=== PATIENT | female | born 1990 | race Caucasian/White ===

== ENCOUNTER 2016-10-25 09:04 | Inpatient (IN) | payer MEDICARE, OTHER ==
[2016-10-25 10:03] LABS: Add Diff/Slide Review? Slide Review Added; Comments Flag Yes; Hematocrit 38 % (35-47); Hemoglobin 12.5 g/dl (12.0-16.0); Mean Corpuscular HGB Conc 33 g/dl (31-36); Mean Corpuscular Hemoglobin 28 pg (27-31); Mean Corpuscular Volume 86 fL (80-97); Mean Platelet Volume 10 um3 (7.4-10.4); Red Blood Count 4.45 10^6/ul (4.0-5.4); Red Cell Distribution Width 14 % (10.5-15); White Blood Count 32.4 10^3/ul (3.5-10.8)
[2016-10-25 10:05] LABS: Manual Entry Verification HAN0055; UR Preg Internal Control QC Line Present
[2016-10-25 10:07] LABS: Urine Bacteria 2+ (Absent); Urine Bilirubin Negative (Negative); Urine Glucose Negative (Negative); Urine Nitrite Negative (Negative)
[2016-10-25 10:19] LABS: Albumin 4.1 g/dL (3.2-5.2); BUN/Creatinine Ratio 15.9 (8-20); EGFR African American 62.6 (>60); EGFR Non-African American 48.6 (>60); Globulin 3.8 g/dL (2-4); Potassium 3.6 mmol/L (3.5-5.0); Total Bilirubin 0.7 mg/dL (0.2-1.0); Total Protein 7.9 g/dL (6.4-8.9)
[2016-10-25 10:46] LABS: Immature Granulocytes 13 % (0-9); Neutrophil % 80 % (38-83); RBC Morphology Normal (Normal)
[2016-10-25] MEDS ORDERED: Ciprofloxacin 400MG IVPREMIX(* 400 MG/200 ML BAG IVPB ONE (11:19)
[2016-10-25] MEDS ORDERED: Ketorolac INJ* 30 MG/ML 1 ML VIAL IV PUSH ONE (11:19)
[2016-10-25] MEDS ORDERED: Ondansetron INJ* 2 MG/ML VIAL IV ONE (11:20)
[2016-10-25] MEDS: NS 0.9% 1000 ML* 2,000 ML IV ONE (11:43)
--- NOTE | 2016-10-25 11:58 | RAD ---
HISTORY: Fever, left flank pain COMPARISONS: October 28, 2013 TECHNIQUE: Multiple transverse and longitudinal ultrasound images were obtained of the left kidney using grayscale and color Doppler imaging. FINDINGS: RIGHT KIDNEY: No images are submitted of the right kidney LEFT KIDNEY: The left kidney is normal in shape, size, contour, and echogenicity. There is no hydronephrosis or nephrolithiasis. The left kidney measures 9.8 x 5.3 x 5.1 cm. BLADDER: No images are submitted of the bladder. AORTA AND IVC: No images are submitted of the vasculature. RETROPERITONEUM: Unremarkable. OTHER: None. IMPRESSION: NO LEFT HYDRONEPHROSIS OR NEPHROLITHIASIS
[2016-10-25] MEDS: Heparin VIAL(*) 5000 UNITS/ML VIAL (FIVE THOUSAND) SUBCUT SCH ×2 (14:03→22:33)
[2016-10-25] MEDS: Acetaminophen TAB* 325 MG PO PRN ×3 (14:03→22:33)
--- NOTE | 2016-10-25 14:16 | ED ---
Back Pain - History of Current Complaint Chief Complaint: EDNauseaVomitDiarrh Stated Complaint: POSSIBLE KIDDNEY STONE FROM [facility] Time Seen by Provider: 10/25/16 09:19 Hx Last Menstrual Period: 10/14/16 Pain Intensity: 0 Pain Scale Used: 0-10 Numeric - Allergies/Home Medications Allergies/Adverse Reactions: Allergies Allergy/AdvReac Type Severity Reaction Status Date / Time Latex Allergy Unknown Itching Verified 10/25/16 12:53 PMH/Surg Hx/FS Hx/Imm Hx Endocrine/Hematology History: Denies: Hx Anticoagulant Therapy, Hx Diabetes, Hx Thyroid Disease Cardiovascular History: Denies: Hx Congestive Heart Failure, Hx Deep Vein Thrombosis, Hx Hypertension , Hx Myocardial Infarction, Hx Pacemaker/ICD Respiratory History: Denies: Hx Asthma, Hx Chronic Obstructive Pulmonary Disease (COPD), Hx Lung Cancer, Hx Pneumonia, Hx Pulmonary Embolism GI History: Denies: Hx Gall Bladder Disease, Hx Gastrointestinal Bleed, Hx Ulcer, Hx Urosepsis History: Denies: Hx Kidney Stones, Hx Renal Disease Sensory History: Denies: Hx Hearing Aid Neurological History: Reports: Other Neuro Impairments/Disorders - CEREBAL PALSY Denies: Hx Dementia, Hx Migraine, Hx Seizures, Hx Transient Ischemic Attacks (TIA) Psychiatric History: Reports: Hx Depression Denies: Hx Anxiety, Hx Panic Disorder, Hx Schizophrenia, Hx Bipolar Disorder - Surgical History Surgery Procedure, Year, and Place: CONTROL IMPLANT. Infectious Disease History: No Infectious Disease History: Denies: Traveled Outside the [place] in Last 30 Days - Family History Known Family History: Negative: Cardiac Disease, Hypertension - Social History Alcohol Use: Occasionally Substance Use Type: Reports: None Smoking Status (MU): Never Smoked Tobacco Physical Exam Vital Signs On Initial Exam: Initial Vitals Temp Pulse Resp BP Pulse Ox 102.6 F 121 18 87/50 99 10/25/16 09:04 10/25/16 09:04 10/25/16 09:04 10/25/16 09:04 10/25/16 09:04 - [place] Coma Scale Coma Scale Total: 15 Diagnostics - Vital Signs Vital Signs Temp Pulse Resp BP Pulse Ox 10/25/16 12:00 114 96 10/25/16 11:00 115 111/63 98 10/25/16 10:48 94/55 10/25/16 10:47 114 105/51 99 10/25/16 10:45 116 106/46 97 10/25/16 10:32 113 89/61 100 10/25/16 10:00 105/39 10/25/16 09:57 112 98 10/25/16 09:56 102.6 F 121 18 87/50 98 10/25/16 09:55 107/46 10/25/16 09:04 102.6 F 121 18 87/50 99 - Laboratory Lab Results: Lab Results 10/25/16 10/25/16 10/25/16 Range/Units 09:38 09:38 09:38 WBC 32.4 H (3.5-10.8) 10^3/ul RBC 4.45 (4.0-5.4) 10^6/ul Hgb 12.5 (12.0-16.0) g/dl Hct 38 (35-47) % MCV 86 (80-97) fL MCH 28 (27-31) pg MCHC 33 (31-36) g/dl RDW 14 (10.5-15) % Plt Count 260 (150-450) 10^3/ul MPV 10 (7.4-10.4) um3 Immature Gran % (Auto) 13 H (0-9) % Neut % (Auto) 90.8 H (38-83) % Lymph % (Auto) 1.4 L (25-47) % Reynolds % (Auto) 7.5 (1-9) % Eos % (Auto) 0 (0-6) % Baso % (Auto) 0.3 (0-2) % Absolute Neuts (auto) 29.4 H (1.5-7.7) 10^3/ul Absolute Lymphs (auto) 0.5 L (1.0-4.8) 10^3/ul Absolute Monos (auto) 2.4 H (0-0.8) 10^3/ul Absolute Eos (auto) 0 (0-0.6) 10^3/ul Absolute Basos (auto) 0.1 (0-0.2) 10^3/ul Absolute Nucleated RBC 0.04 10^3/ul Neutrophils % 80 (38-83) % Band Neutrophils % 13 H (0-8) % Lymphocytes % 2 L (25-47) % Monocytes % 5 (0-13) % Nucleated RBC % 0.1 Normal RBC Morphology Normal (Normal) Sodium 137 (133-145) mmol/L Potassium 3.6 (3.5-5.0) mmol/L Chloride 103 (101-111) mmol/L Carbon Dioxide 24 (22-32) mmol/L Anion Gap 10 (2-11) mmol/L BUN 21 (6-24) mg/dL Creatinine 1.32 H (0.51-0.95) mg/dL Est GFR ( Amer) 62.6 (>60) Est GFR (Non-Af Amer) 48.6 (>60) BUN/Creatinine Ratio 15.9 (8-20) Glucose 116 H (70-100) mg/dL Lactic Acid (0.5-2.0) mmol/L Calcium 9.0 (8.6-10.3) mg/dL Total Bilirubin 0.70 (0.2-1.0) mg/dL AST 14 (13-39) U/L ALT 15 (7-52) U/L Alkaline Phosphatase 72 (34-104) U/L Total Protein 7.9 (6.4-8.9) g/dL Albumin 4.1 (3.2-5.2) g/dL Globulin 3.8 (2-4) g/dL Albumin/Globulin Ratio 1.1 (1-3) Urine Color Yellow Urine Appearance Cloudy Urine pH 5.0 (5-9) Ur Specific [place] 1.021 (1.010-1.030) Urine Protein 1+(30 mg/dl) H (Negative) Urine Ketones Trace H (Negative) Urine Blood 2+ H (Negative) Urine Nitrate Negative (Negative) Urine Bilirubin Negative (Negative) Urine Urobilinogen Negative (Negative) Ur Leukocyte Esterase 2+ H (Negative) Urine WBC (Auto) 3+(>20/hpf) H (Absent) Urine RBC (Auto) 2+(6-10/hpf) H (Absent) Ur Squamous Epith Cells Present H (Absent) Urine Bacteria 2+ H (Absent) Urine Glucose Negative (Negative) Urine Test (Negative) Influenza A (Rapid) (Negative) Influenza B (Rapid) (Negative) 10/25/16 10/25/16 10/25/16 Range/Units 09:38 09:38 11:25 WBC (3.5-10.8) 10^3/ul RBC (4.0-5.4) 10^6/ul Hgb (12.0-16.0) g/dl Hct (35-47) % MCV (80-97) fL MCH (27-31) pg MCHC (31-36) g/dl RDW (10.5-15) % Plt Count (150-450) 10^3/ul MPV (7.4-10.4) um3 Immature Gran % (Auto) (0-9) % Neut % (Auto) (38-83) % Lymph % (Auto) (25-47) % Reynolds % (Auto) (1-9) % Eos % (Auto) (0-6) % Baso % (Auto) (0-2) % Absolute Neuts (auto) (1.5-7.7) 10^3/ul Absolute Lymphs (auto) (1.0-4.8) 10^3/ul Absolute Monos (auto) (0-0.8) 10^3/ul Absolute Eos (auto) (0-0.6) 10^3/ul Absolute Basos (auto) (0-0.2) 10^3/ul Absolute Nucleated RBC 10^3/ul Neutrophils % (38-83) % Band Neutrophils % (0-8) % Lymphocytes % (25-47) % Monocytes % (0-13) % Nucleated RBC % Normal RBC Morphology (Normal) Sodium (133-145) mmol/L Potassium (3.5-5.0) mmol/L Chloride (101-111) mmol/L Carbon Dioxide (22-32) mmol/L Anion Gap (2-11) mmol/L BUN (6-24) mg/dL Creatinine (0.51-0.95) mg/dL Est GFR ( Amer) (>60) Est GFR (Non-Af Amer) (>60) BUN/Creatinine Ratio (8-20) Glucose (70-100) mg/dL Lactic Acid 1.7 (0.5-2.0) mmol/L Calcium (8.6-10.3) mg/dL Total Bilirubin (0.2-1.0) mg/dL AST (13-39) U/L ALT (7-52) U/L Alkaline Phosphatase (34-104) U/L Total Protein (6.4-8.9) g/dL Albumin (3.2-5.2) g/dL Globulin (2-4) g/dL Albumin/Globulin Ratio (1-3) Urine Color Urine Appearance Urine pH (5-9) Ur Specific [place] (1.010-1.030) Urine Protein (Negative) Urine Ketones (Negative) Urine Blood (Negative) Urine Nitrate (Negative) Urine Bilirubin (Negative) Urine Urobilinogen (Negative) Ur Leukocyte Esterase (Negative) Urine WBC (Auto) (Absent) Urine RBC (Auto) (Absent) Ur Squamous Epith Cells (Absent) Urine Bacteria (Absent) Urine Glucose (Negative) Urine Test Negative (Negative) Influenza A (Rapid) Negative (Negative) Influenza B (Rapid) Negative (Negative) Result Diagrams: 10/25/16 09:38 10/25/16 09:38 Lab Statement: Any lab studies that have been ordered have been reviewed, and results considered in the medical decision making process. - Ultrasound No standard instances Ultrasound Interpretation: No Acute Changes - NO LEFT HYDRONEPHROSIS OR NEPHROLITHIASIS Ultrasound Interpretation Completed By: Radiologist
[2016-10-25] MEDS ORDERED: Morphine INJ* 2 MG/ML 1 ML SYRINGE IV PRN (19:59)
[2016-10-25] MEDS ORDERED: oxyCODONE/Acetamin 5/325 MG* TAB PO PRN (19:59)
[2016-10-25] MEDS: Ondansetron INJ* 2 MG/ML VIAL IV PRN (20:05)
--- NOTE | 2016-10-25 20:09 | HP ---
HISTORY AND PHYSICAL: DATE OF ADMISSION: 10/25/16 PRIMARY CARE PROVIDER: Dr. Yessi Alexandra. ATTENDING PHYSICIAN: Dr. Marvin Thomas *(dictated by Ariela Rosenthal NP). CHIEF COMPLAINT: Left flank pain with fever, body aches, and nausea. HISTORY OF PRESENT ILLNESS: Ms. Rivas is a 26-year-old female with past medical history significant for cerebral palsy and depression, who presents to the emergency room from urgent care center with complaints of left flank pain. The patient states that yesterday, she developed left flank pain with accompanied fever, body aches, and nausea. The patient denies any chills, chest pain, shortness of breath, diarrhea. She denies any dysuria, but does report increased frequency of urination. The patient also reports a headache for several days. The patient reports some vomiting this morning. The patient presented to urgent care for further evaluation of her symptoms and was sent to the emergency room for further evaluation. The patient states that she had taken some Tylenol, but did not help with her pain, and cranberry juice. While in the emergency room, the patient was found to have a fever of 102.6 and tachycardic with her rate in the 100s to 120s. The patient received 2 L of normal saline, IV Cipro, Toradol, and Zofran. The patient had labs significant for white blood cell count of 32.4, a creatinine of 1.32, a urinalysis with protein 1+, ketones trace, blood 2+, leukocyte esterase 2+, wbc's 3+, rbc's 2+, squamous epithelial cells present, and bacteria 2+. She had influenza A and B negative. The patient had a renal ultrasound showing no hydronephrosis or nephrolithiasis. Hospitalists were asked to evaluate the patient for admission. PAST MEDICAL HISTORY: 1. Depression. 2. Cerebral palsy. PAST SURGICAL HISTORY: Status post section in June 2016. HOME MEDICATIONS: Include Zoloft 50 mg oral daily at bedtime. ALLERGIES: LATEX and BLEACH caused hives. FAMILY HISTORY: The patient denies any family history of coronary artery disease or diabetes mellitus. The patient's mother had a history of ovarian cancer. SOCIAL HISTORY: The patient denies tobacco, recreational drug use. She occasionally drinks alcoholic beverages. She is disabled and a [id number] mother. Her surrogate decision maker will be her fiance, Andrew Valenzuela, in the event she is unable to make decisions for herself. If he is unable to reached, his mom, Tamika Mejía, would step in to be her surrogate decision maker. REVIEW OF SYSTEMS: I performed a 14-point of review of systems. All the pertinent positives and negatives are mentioned in the history of present illness. The remaining review of systems is negative. PHYSICAL EXAMINATION GENERAL APPEARANCE: The patient is alert, pleasant, and appears to be in no acute distress. VITAL SIGNS: Temperature 102.6, heart rate 115, respiratory rate 18, O2 sat 98% , and blood pressure 111/63. HEENT: Normocephalic, atraumatic. Pupils equal and reactive to light. Extraocular movements were intact. NECK: Supple. There is no lymphadenopathy noted. RESPIRATORY: There is no accessory muscle use and the lungs are clear to auscultation bilateral. CARDIOVASCULAR: Regular rate and rhythm. S1, S2 present. Tachycardic. There are no murmurs, rubs, gallops heard. ABDOMEN: Soft, nondistended. There is suprapubic tenderness. The patient also has left CVA tenderness. Bowel sounds are present x4. EXTREMITIES: Show no lower extremity edema. DP and PT pulses are 2+ and symmetric. MUSCULOSKELETAL: There is no clubbing or cyanosis noted. The patient exhibits good strength in all extremities. NEUROLOGICAL: The patient is alert and oriented x4. Cranial nerves II through XII are grossly intact. PSYCHOLOGICAL: The patient is calm and cooperative. SKIN: There are no rashes or abnormalities seen. DIAGNOSTIC STUDIES/LAB DATA: Sodium 137, potassium 3.6, chloride 103, CO2 24, BUN 21, creatinine 1.32, glucose 116. White blood cell count 32.4, hemoglobin 12.5, hematocrit 38, and platelet count 260. Lactic acid 1.7. Influenza A and B negative. Urinalysis with specific gravity 1.021, protein 1+, ketones trace, blood 2+, leukocyte esterase 2+, wbc's 3+, rbc's 2+, squamous epithelial cells present, bacteria 2+. Urine test negative. Left renal ultrasound from today. Radiologist's impression: No left hydronephrosis or nephrolithiasis. IMPRESSION: Ms. Rivas is a 26-year-old female with past medical history significant for cerebral palsy, who presents to the emergency room with complaints of left flank pain and was found to have a left pyelonephritis. She will be admitted as an inpatient. ASSESSMENT AND PLAN: 1. Pyelonephritis with sepsis. The patient is currently meeting sepsis criteria with systemic inflammatory response syndrome with fever of 102.6, heart rate in the one teens, white blood cell count 32.4. The patient is not meeting sepsis score with the qSOFA at this time. She does not have altered mental status, she is not tachypneic, and her blood pressure is currently greater than 100. The patient has already received 2 L of IV fluids while in the ER and Cipro. She had blood cultures drawn. We will continue the patient on IV Cipro and IV fluids and await urine cultures. 2. Acute kidney injury. I suspect this is related to dehydration as the patient has been vomiting. She will receive IV fluids overnight and we will recheck her labs in the morning. 3. depression. The patient will be continued on her home Zoloft dose. 4. Fluids, electrolytes, and nutrition. The patient will be on a regular diet. 5. Code status. Full code. 6. DVT prophylaxis. The patient is at moderate risk and will have subcu heparin. 7. Disposition. Inpatient. TIME SPENT: Time for this admission is 60 minutes and 35 minutes was spent face -to- face with the patient discussing medications, past medical history, and the events leading up to her arrival today and performing a physical examination. The case has been reviewed with the attending, Dr. Thomas, who agrees with the plan of care. Reviewed by NATHAN BUCKLEY 10/25/16 1814 CC: Dr. Yessi Alexandra* [id number]/[facility] #: [id number] EV
[2016-10-25] MEDS: Sertraline* 50 MG TAB PO SCH (22:33)
[2016-10-25] MEDS: Ciprofloxacin 400MG IVPREMIX(* 400 MG/200 ML BAG IVPB SCH (22:36)
[2016-10-26] MEDS: NS 0.9% 1000 ML* 1,000 ML IV SCH ×2 (02:02→10:19)
[2016-10-26] MEDS: Ondansetron INJ* 2 MG/ML VIAL IV PRN ×3 (03:20→22:34)
[2016-10-26] MEDS: Heparin VIAL(*) 5000 UNITS/ML VIAL (FIVE THOUSAND) SUBCUT SCH ×3 (05:33→21:35)
[2016-10-26] MEDS: Acetaminophen TAB* 325 MG PO PRN ×4 (06:21→22:33)
[2016-10-26 08:24] LABS: Hematocrit 31 % (35-47); Hemoglobin 9.9 g/dl (12.0-16.0); Mean Corpuscular HGB Conc 33 g/dl (31-36); Mean Corpuscular Hemoglobin 28 pg (27-31); Mean Corpuscular Volume 87 fL (80-97); Mean Platelet Volume 10 um3 (7.4-10.4); Red Blood Count 3.53 10^6/ul (4.0-5.4); Red Cell Distribution Width 15 % (10.5-15); White Blood Count 29.6 10^3/ul (3.5-10.8)
[2016-10-26 08:27] LABS: Add Diff/Slide Review? Slide Review Added; Comments Flag Yes
[2016-10-26 08:38] LABS: BUN/Creatinine Ratio 18.6 (8-20); Calcium 7.8 mg/dL (8.6-10.3); EGFR African American 89.3 (>60); EGFR Non-African American 69.4 (>60); Potassium 3.8 mmol/L (3.5-5.0)
[2016-10-26 08:54] LABS: Immature Granulocytes 2 % (0-9); Neutrophil % 87 % (38-83); RBC Morphology Normal (Normal)
[2016-10-26] MEDS: Ciprofloxacin 400MG IVPREMIX(* 400 MG/200 ML BAG IVPB SCH ×2 (10:19→22:34)
--- NOTE | 2016-10-26 12:42 | PN ---
Subjective Date of Service: 10/26/16 Interval History: Patient seen this morning. Reports feeling better today. Less flank pain. No dysuria or abdominal pain. Not much appetite. Feels bloated from IVF. Family History: Unchanged from Admission Social History: Unchanged from Admission Past Medical History: Unchanged from Admission Objective Active Medications: Acetaminophen (Tylenol Tab*) 650 mg PO Q4H PRN Heparin Sodium (Porcine) (Heparin Vial(*)) 5,000 units SUBCUT Q8HR [place]MEN[place]A Ciprofloxacin/Dextrose (Cipro 400 Mg Ivpremix(*)) 400 mg in 200 mls @ 200 mls/ hr IVPB Q12H [place]MEN[place]A Morphine Sulfate (Morphine Inj (Syringe)*) 2 mg IV Q4H PRN Ondansetron HCl (Zofran Inj*) 4 mg IV Q6H PRN Oxycodone/Acetaminophen (Percocet 5/325 Tab*) 1 tab PO Q4H PRN Sertraline HCl (Zoloft*) 50 mg PO BEDTIME [facility] Vital Signs 10/25/16 10/25/16 10/25/16 13:00 13:23 13:34 Temperature 100.3 F 98.1 F Pulse Rate 105 100 Respiratory 18 Rate Blood Pressure 90/50 (mmHg) O2 Sat by Pulse 93 97 Oximetry 10/25/16 10/25/16 10/25/16 16:00 16:30 19:18 Temperature 98.7 F 99.7 F Pulse Rate 102 111 115 Respiratory 20 18 20 Rate Blood Pressure 87/39 90/50 99/42 (mmHg) O2 Sat by Pulse 95 100 Oximetry 10/26/16 10/26/16 07:25 12:03 Temperature 97.9 F 98.0 F Pulse Rate 86 90 Respiratory Rate Blood Pressure 93/45 92/67 (mmHg) O2 Sat by Pulse 95 100 Oximetry Oxygen Devices in Use Now: None Appearance: Young, F, laying in bed in NAD Eyes: No Scleral Icterus Ears/Nose/Mouth/Throat: - - Dry MM Neck: NL Appearance and Movements; NL JVP Respiratory: Symmetrical Chest Expansion and Respiratory Effort, Clear to Auscultation Cardiovascular: NL Sounds; No Murmurs; No JVD, RRR Abdominal: NL Sounds; No Tenderness; No Distention, - - L CVA tenderness ( improved as per patient) Lymphatic: No Cervical Adenopathy Extremities: No Edema Skin: No Rash or Ulcers Neurological: Alert and Oriented x 3 Result Diagrams: 10/26/16 07:34 10/26/16 07:34 Assess/Plan/Problems-Billing Assessment: Pyelonephritis in a 26 yo F with hx of depression and cerebral palsy - Patient Problems (1) Pyelonephritis Current Visit: Yes Comment: Continue IV Cipro. Bandemia resolving, still significant leukocytosis. D/C IVF and monitor VS closely. (2) NIA (acute kidney injury) Current Visit: Yes Comment: Resolved (3) Depression Current Visit: Yes Comment: Continue Zoloft (4) DVT prophylaxis Current Visit: Yes Comment: HSQ Status and Disposition: Inpatient for pyelonephritis
[2016-10-26] MEDS: Sertraline* 50 MG TAB PO SCH (21:34)
[2016-10-27] MEDS: Heparin VIAL(*) 5000 UNITS/ML VIAL (FIVE THOUSAND) SUBCUT SCH ×3 (05:36→21:21)
[2016-10-27] MEDS: Acetaminophen TAB* 325 MG PO PRN ×3 (07:41→22:58)
[2016-10-27 09:12] LABS: Hematocrit 30 % (35-47); Hemoglobin 9.9 g/dl (12.0-16.0); Mean Corpuscular HGB Conc 33 g/dl (31-36); Mean Corpuscular Hemoglobin 28 pg (27-31); Mean Corpuscular Volume 86 fL (80-97); Mean Platelet Volume 10 um3 (7.4-10.4); Red Blood Count 3.53 10^6/ul (4.0-5.4); Red Cell Distribution Width 14 % (10.5-15); White Blood Count 20.5 10^3/ul (3.5-10.8)
[2016-10-27 09:22] LABS: BUN/Creatinine Ratio 11.6 (8-20); Calcium 8.6 mg/dL (8.6-10.3); EGFR African American 102.6 (>60); EGFR Non-African American 79.8 (>60); Potassium 3.6 mmol/L (3.5-5.0)
[2016-10-27] MEDS: Ondansetron INJ* 2 MG/ML VIAL IV PRN ×2 (10:37→22:52)
[2016-10-27] MEDS: Ciprofloxacin 400MG IVPREMIX(* 400 MG/200 ML BAG IVPB SCH ×2 (11:34→23:20)
--- NOTE | 2016-10-27 12:13 | PN ---
Subjective Date of Service: 10/27/16 Interval History: Patient seen this morning. Says she is feeling improved. No flank pain, no dysuria. Still with low grade fevers. Appetite slowly returning, ate breakfast this morning. Family History: Unchanged from Admission Social History: Unchanged from Admission Past Medical History: Unchanged from Admission Objective Active Medications: Acetaminophen (Tylenol Tab*) 650 mg PO Q4H PRN Heparin Sodium (Porcine) (Heparin Vial(*)) 5,000 units SUBCUT Q8HR [place] Ciprofloxacin/Dextrose (Cipro 400 Mg Ivpremix(*)) 400 mg in 200 mls @ 200 mls/ hr IVPB Q12H [place] Morphine Sulfate (Morphine Inj (Syringe)*) 2 mg IV Q4H PRN Ondansetron HCl (Zofran Inj*) 4 mg IV Q6H PRN Oxycodone/Acetaminophen (Percocet 5/325 Tab*) 1 tab PO Q4H PRN Sertraline HCl (Zoloft*) 50 mg PO BEDTIME [facility] Vital Signs 10/26/16 10/26/16 10/26/16 15:35 22:08 22:10 Temperature 98.8 F 100.4 F 100.4 F Pulse Rate 100 90 90 Respiratory 20 18 18 Rate Blood Pressure 141/58 115/59 115/59 (mmHg) O2 Sat by Pulse 98 100 100 Oximetry 10/26/16 10/26/16 10/26/16 22:17 23:00 23:48 Temperature 101.4 F Pulse Rate 86 Respiratory 18 18 18 Rate Blood Pressure (mmHg) O2 Sat by Pulse 100 99 Oximetry 10/27/16 10/27/16 07:40 07:53 Temperature 100.5 F Pulse Rate 83 Respiratory 16 16 Rate Blood Pressure 101/62 (mmHg) O2 Sat by Pulse 99 Oximetry Oxygen Devices in Use Now: None Appearance: Young, F, sitting in chair in NAD Eyes: No Scleral Icterus Ears/Nose/Mouth/Throat: Mucous Membranes Moist Neck: NL Appearance and Movements; NL JVP Respiratory: Symmetrical Chest Expansion and Respiratory Effort, Clear to Auscultation Cardiovascular: NL Sounds; No Murmurs; No JVD, RRR Abdominal: NL Sounds; No Tenderness; No Distention, - - no CVA tenderness Lymphatic: No Cervical Adenopathy Extremities: No Edema Skin: No Rash or Ulcers Neurological: Alert and Oriented x 3 Result Diagrams: 10/27/16 08:47 10/27/16 08:48 Additional Lab and Data: Lab Results 10/25/16 10/25/16 10/25/16 Range/Units 09:38 09:38 09:38 WBC 32.4 H (3.5-10.8) 10^3/ul RBC 4.45 (4.0-5.4) 10^6/ul Hgb 12.5 (12.0-16.0) g/dl Hct 38 (35-47) % MCV 86 (80-97) fL MCH 28 (27-31) pg MCHC 33 (31-36) g/dl RDW 14 (10.5-15) % Plt Count 260 (150-450) 10^3/ul MPV 10 (7.4-10.4) um3 Immature Gran % (Auto) 13 H (0-9) % Neut % (Auto) 90.8 H (38-83) % Lymph % (Auto) 1.4 L (25-47) % Bond % (Auto) 7.5 (1-9) % Eos % (Auto) 0 (0-6) % Baso % (Auto) 0.3 (0-2) % Absolute Neuts (auto) 29.4 H (1.5-7.7) 10^3/ul Absolute Lymphs (auto) 0.5 L (1.0-4.8) 10^3/ul Absolute Monos (auto) 2.4 H (0-0.8) 10^3/ul Absolute Eos (auto) 0 (0-0.6) 10^3/ul Absolute Basos (auto) 0.1 (0-0.2) 10^3/ul Absolute Nucleated RBC 0.04 10^3/ul Neutrophils % 80 (38-83) % Band Neutrophils % 13 H (0-8) % Lymphocytes % 2 L (25-47) % Monocytes % 5 (0-13) % Nucleated RBC % 0.1 Normal RBC Morphology Normal (Normal) Sodium 137 (133-145) mmol/L Potassium 3.6 (3.5-5.0) mmol/L Chloride 103 (101-111) mmol/L Carbon Dioxide 24 (22-32) mmol/L Anion Gap 10 (2-11) mmol/L BUN 21 (6-24) mg/dL Creatinine 1.32 H (0.51-0.95) mg/dL Est GFR ( Amer) 62.6 (>60) Est GFR (Non-Af Amer) 48.6 (>60) BUN/Creatinine Ratio 15.9 (8-20) Glucose 116 H (70-100) mg/dL Lactic Acid (0.5-2.0) mmol/L Calcium 9.0 (8.6-10.3) mg/dL Total Bilirubin 0.70 (0.2-1.0) mg/dL AST 14 (13-39) U/L ALT 15 (7-52) U/L Alkaline Phosphatase 72 (34-104) U/L Total Protein 7.9 (6.4-8.9) g/dL Albumin 4.1 (3.2-5.2) g/dL Globulin 3.8 (2-4) g/dL Albumin/Globulin Ratio 1.1 (1-3) Urine Color Yellow Urine Appearance Cloudy Urine pH 5.0 (5-9) Ur Specific [place] 1.021 (1.010-1.030) Urine Protein 1+(30 mg/dl) H (Negative) Urine Ketones Trace H (Negative) Urine Blood 2+ H (Negative) Urine Nitrate Negative (Negative) Urine Bilirubin Negative (Negative) Urine Urobilinogen Negative (Negative) Ur Leukocyte Esterase 2+ H (Negative) Urine WBC (Auto) 3+(>20/hpf) H (Absent) Urine RBC (Auto) 2+(6-10/hpf) H (Absent) Ur Squamous Epith Cells Present H (Absent) Urine Bacteria 2+ H (Absent) Urine Glucose Negative (Negative) Urine Test (Negative) Influenza A (Rapid) (Negative) Influenza B (Rapid) (Negative) 10/25/16 10/25/16 10/25/16 Range/Units 09:38 09:38 11:25 WBC (3.5-10.8) 10^3/ul RBC (4.0-5.4) 10^6/ul Hgb (12.0-16.0) g/dl Hct (35-47) % MCV (80-97) fL MCH (27-31) pg MCHC (31-36) g/dl RDW (10.5-15) % Plt Count (150-450) 10^3/ul MPV (7.4-10.4) um3 Immature Gran % (Auto) (0-9) % Neut % (Auto) (38-83) % Lymph % (Auto) (25-47) % Bond % (Auto) (1-9) % Eos % (Auto) (0-6) % Baso % (Auto) (0-2) % Absolute Neuts (auto) (1.5-7.7) 10^3/ul Absolute Lymphs (auto) (1.0-4.8) 10^3/ul Absolute Monos (auto) (0-0.8) 10^3/ul Absolute Eos (auto) (0-0.6) 10^3/ul Absolute Basos (auto) (0-0.2) 10^3/ul Absolute Nucleated RBC 10^3/ul Neutrophils % (38-83) % Band Neutrophils % (0-8) % Lymphocytes % (25-47) % Monocytes % (0-13) % Nucleated RBC % Normal RBC Morphology (Normal) Sodium (133-145) mmol/L Potassium (3.5-5.0) mmol/L Chloride (101-111) mmol/L Carbon Dioxide (22-32) mmol/L Anion Gap (2-11) mmol/L BUN (6-24) mg/dL Creatinine (0.51-0.95) mg/dL Est GFR ( Amer) (>60) Est GFR (Non-Af Amer) (>60) BUN/Creatinine Ratio (8-20) Glucose (70-100) mg/dL Lactic Acid 1.7 (0.5-2.0) mmol/L Calcium (8.6-10.3) mg/dL Total Bilirubin (0.2-1.0) mg/dL AST (13-39) U/L ALT (7-52) U/L Alkaline Phosphatase (34-104) U/L Total Protein (6.4-8.9) g/dL Albumin (3.2-5.2) g/dL Globulin (2-4) g/dL Albumin/Globulin Ratio (1-3) Urine Color Urine Appearance Urine pH (5-9) Ur Specific [place] (1.010-1.030) Urine Protein (Negative) Urine Ketones (Negative) Urine Blood (Negative) Urine Nitrate (Negative) Urine Bilirubin (Negative) Urine Urobilinogen (Negative) Ur Leukocyte Esterase (Negative) Urine WBC (Auto) (Absent) Urine RBC (Auto) (Absent) Ur Squamous Epith Cells (Absent) Urine Bacteria (Absent) Urine Glucose (Negative) Urine Test Negative (Negative) Influenza A (Rapid) Negative (Negative) Influenza B (Rapid) Negative (Negative) Assess/Plan/Problems-Billing Assessment: Pyelonephritis in a 26 yo F with hx of depression and cerebral palsy - Patient Problems (1) Pyelonephritis Current Visit: Yes Comment: Continue IV Cipro for another 24 hours. Leukocytosis improving, still with some fevers. OK off IVF. (2) NIA (acute kidney injury) Current Visit: Yes Comment: Resolved (3) Depression Current Visit: Yes Comment: Continue Zoloft (4) DVT prophylaxis Current Visit: Yes Comment: HSQ Status and Disposition: Inpatient for pyelonephritis, likely d/c on 10/28
[2016-10-27] MEDS: Sertraline* 50 MG TAB PO SCH (19:32)
[2016-10-27] MEDS ORDERED: Loperamide CAP* 2 MG PO PRN (20:19)
[2016-10-28] MEDS: Acetaminophen TAB* 325 MG PO PRN (04:23)
[2016-10-28] MEDS: Heparin VIAL(*) 5000 UNITS/ML VIAL (FIVE THOUSAND) SUBCUT SCH (05:10)
[2016-10-28 08:01] VITALS: BP 115/57
[2016-10-28 08:21] LABS: Hematocrit 30 % (35-47); Mean Corpuscular HGB Conc 33 g/dl (31-36); Mean Corpuscular Hemoglobin 28 pg (27-31); Mean Corpuscular Volume 84 fL (80-97); Mean Platelet Volume 10 um3 (7.4-10.4); Red Blood Count 3.57 10^6/ul (4.0-5.4); Red Cell Distribution Width 14 % (10.5-15); White Blood Count 9.9 10^3/ul (3.5-10.8)
--- NOTE | 2016-10-28 08:40 | DCNOTE ---
Patient seen this morning. Feeling well. Still with some fever overnight. No hematuria, dysuria or flank pain. Eating well. On exam, RRR, s1 and s2 present, no m/g/r, lungs CTA B/L, no w/r/r, abd soft, NTND, BS, no CVA tenderness. Will discharge home with oral Cipro to complete course for pyelonephritis. F/U with PCP. Tylenol prn for fever.
--- NOTE | 2016-10-28 12:51 | DS ---
DATE OF ADMISSION: 10/25/2016. DATE OF DISCHARGE: 10/28/2016. PRIMARY CARE PHYSICIAN: Dr. Yessi Alexandra. PRINCIPAL DISCHARGE DIAGNOSIS: Pyelonephritis. SECONDARY DIAGNOSES: Depression, cerebral palsy. STUDIES DONE DURING HOSPITALIZATION: Renal ultrasound: Impression: No left hydronephrosis or neph rolithiasis. DISCHARGE MEDICATION REGIMEN: 1. Ciprofloxacin 500 mg by mouth two times daily. 2. Sertraline 50 mg by mouth at bedtime. HISTORY OF PRESENT ILLNESS AND HOSPITAL SUMMARY: Please see the full history and physical by Ariela Chandler for full details. Briefly, Ms. Rivas is a 26- year-old female with a past medic al history as above who presented to the hospital with left flank pain and fever. The patient was f ound to have a fever of 102 and a significant leukocytosis of 32.4 with an elevated creatinine of 1. 32. Renal ultrasound was done as above that showed no evidence of hydronephrosis or urinary tract s tones. The patient had a positive urinalysis. She was started on IV Ciprofloxacin. E. coli grew f rom her urine culture. Over the following days, her symptoms slowly improved. Her white blood cell count normalized on the day of discharge. She continued to have some fevers during the hospitaliza tion, but the remainder of her symptoms completed resolved. She will be discharged home to complete a ten day course of Ciprofloxacin and she was instructed to take Tylenol as needed for her fevers a nd follow-up with her PCP as an outpatient. Total time spent on this discharge was 35 minutes. This is a summary of the hospitalization, please see the full medical record for further details. [id number]/[facility] #: [id number]
== END 2016-10-28 10:10 | disposition home or self-care (01) | DRG 690 ==
LOC: ED 09:04 → MED 12:17 → MCHPEDS 10-26 21:50
PROVIDERS: ADMIT Hospitalist; ATTEND Hospitalist
DX: N12 Tubulo-interstitial nephritis, not specified as acute or chronic (principal); N17.9 Acute kidney failure, unspecified; E86.0 Dehydration; F32.9 Major depressive disorder, single episode, unspecified; G80.9 Cerebral palsy, unspecified; Z79.899 Other long term (current) drug therapy; Z91.040 Latex allergy status; Z91.048 Other nonmedicinal substance allergy status; Z80.41 Family history of malignant neoplasm of ovary
CPT/HCPCS: 36415; 76775; 80048; 80053; 81003; 81015; 81025; 83605; 85025; 87040; 87077; 87086; 87186; 87502; 99202; A9270-GY; G0463; J0744; J1644; J1885; J2270; J2405